=== PATIENT | female | born 1945 | race Caucasian/White ===

== ENCOUNTER 2018-12-05 13:41 | Observation (INO) | payer MEDICARE, OTHER ==
[~2018-12-05] VITALS: Ht 157.5 cm; Wt 60.3 kg
[2018-12-05] VITALS (277 sets, daily range): BP systolic 110–112; BP diastolic 62–73; PULSE 96–103; TEMP 98.2–98.5; O2SAT 67–100
[~2018-12-05 13:41] MED LIST: ADVAIR 100/28 DISKU1 IH; ADVAIR 100/28 DISKUS IH; ALDACTONE 25MG25 M1 PO; ALDACTONE 25MG25 MG PO; ALDACTONE25 MG PO; ASPIR-LOW81 MG PO; ASPIRIN 81M81 MG/TA2 PO; ASPIRIN E.C. 8181 MG PO; ATIVAN 0.50.5 MG/TAB PO; CALCIUM CITRATE1 TA1 PO; CARDIZEM CD 18180 MG PO; CEFTIN500 MG PO; CEPHALEXIN500 M1 PO; DIGOXIN0.125 MG PO; DILTIAZEM180 MG PO; FISH OIL CONC1000 MG PO; LAMICTAL 25MG T25 MG PO; LASIX 20MG TABL20 MG PO; LASIX20 MG PO; LEVOTHYROXIN0.075 MG PO; LEVOTHYROXINE PO; MAGNESIUM OXID400 MG PO; MUCINEX DM 30 M1 TE1 PO; MUCINEX1200 MG PO; NITROSTAT0.4 MG/TAB SL; PRINIVIL5 MG PO; REMERON 15M15 MG/TAB PO; REMERON30 MG PO; RT ADVAIR 128 DISKUS IH; RT SPIRIVA18 MCG IH; SINGULAIR 110 MG/TAB PO; SINGULAIR10 MG PO; SPIRIVA18 MCG IH; SYNTHROID0.075 MG/T PO; TESSALON P100 MG/CAP PO; THEO-DUR 2200 MG/TAB PO; THEO-DUR450 MG PO; TIROSINT75 MCG PO; TYLENOL 325MG325 MG PO; VENTOLIN0.09 MG IH; VITAMIN D32000 IU PO; ZYPREXA2.5 MG PO; evista PO; spiriva IH
[2018-12-05] MEDS ORDERED: RT ADVAIR 228 DISKUS IH (15:06)
[2018-12-05] MEDS ORDERED: PROAIR HFA0.09 MG/AC IH (15:06)
[2018-12-05] MEDS ORDERED: SYNTHROID0.1 MG/TAB PO (15:08)
[2018-12-05] MEDS ORDERED: DEMADEX 20MG20 M1 PO (15:08)
--- NOTE | 2018-12-05 16:48 | NUR ---
Dr. Mc spoke with Dr. Bales regarding consult.
[2018-12-05 17:01] LABS: MAGNESIUM 1.7 mg/dL (1.6-2.3)
--- NOTE | 2018-12-05 17:04 | NUR ---
Patient ambulated with standby assist to toilet.
[2018-12-05 17:15] LABS: TROPONIN-I 3 HR POST INITIAL < 0.012 ng/mL (0.000-0.034)
--- NOTE | 2018-12-05 17:53 | NUR ---
Filippo Peña here to reprogram patient ICD.
--- NOTE | 2018-12-05 18:18 | NUR ---
Lotion patients bilateral lower extremities.
--- NOTE | 2018-12-05 19:29 | NUR ---
Bedside report given to BETH Stiles.
--- NOTE | 2018-12-05 20:00 | NUR ---
Shift assessment complete at this time. Plan of care reviewed at bedside with patient. Additional time taken to address any other needs or concerns. Vitals stable at this time. Denies pain or any other discomfort. Will continue to monitor.
[2018-12-06] VITALS (360 sets, daily range): BP systolic 98–106; BP diastolic 62–72; PULSE 92–106; TEMP 98–98.6; O2SAT 72–100
--- NOTE | 2018-12-06 | NUR ---
Pt sleeping comfortably in bed. Denies pain or any other discomfort. Vitals stable at this time. Will continue to monitor.
--- NOTE | 2018-12-06 04:00 | NUR ---
Pt sleeping comfortably in bed. Denies pain or any other discomfort. Vitals stable at this time. Will continue to monitor.
--- NOTE | 2018-12-06 07:05 | NUR ---
Report received from BETH Stiles.
--- NOTE | 2018-12-06 07:09 | NUR ---
Bedside report given to BETH Roa.
--- NOTE | 2018-12-06 11:51 | NUR ---
Patient lives at home in [place], [place] alone and plans to return home upon discharge. Patient's family is supportive as needed especially her son (Filippo). Patient is mostly independent with her daily living activities but she does use a walker for mobility assistance and she does have home oxygen for her COPD. Patient's medical care physician's are Dr. Mike Drake, Dr. Bales, and Dr. Tiwari, her [facility] is [facility] and [facility], and she does not have advance directives completed at this time. Patient is a retired [employer] and there are no further needs at this time.
--- NOTE | 2018-12-06 14:04 | NUR ---
Discussed with Dr. Mc and RobertRN (house designer) my concern about patient going home alone.
[2018-12-06] MEDS ORDERED: LANOXIN 0.120.125 MG PO (14:10)
--- NOTE | 2018-12-06 14:15 | NUR ---
Discharge instructions given, questions invited and answered, assisted patient in getting dressed, INT removed tip intact. Waiting on patient's ride home.
--- NOTE | 2018-12-06 14:37 | NUR ---
BETH Jones (warehouse examiner) here to check on patient.
--- NOTE | 2018-12-06 14:40 | NUR ---
PT TRANSFERRED VIA WHEELCHAIR TO PATIENT ENTRANCE WHERE DAUGHTER IN LAW AWAITED WITH VEHICLE. PT'S BELONGINGS DISCHARGED WITH PATIENT. PT AMBULATED FROM WHEELCHAIR TO VEHICLE WITHOUT DIFFICULTY. PT TRANSFERRED WITH NC IN PLACE.
== END 2018-12-06 14:40 | disposition home or self-care (01) ==
LOC: IMCU 13:41 → ICU 14:56
PROVIDERS: ADMIT Hospitalist
DX: T82.118A Breakdown (mechanical) of other cardiac electronic device, initial encounter (principal); I13.0 Hypertensive heart and chronic kidney disease with heart failure and stage 1 through stage 4 chronic kidney disease, or unspecified chronic kidney disease; I50.9 Heart failure, unspecified; N18.3 Chronic kidney disease, stage 3 (moderate); J44.9 Chronic obstructive pulmonary disease, unspecified; Z99.81 Dependence on supplemental oxygen; E03.9 Hypothyroidism, unspecified; Z66 Do not resuscitate; I47.2 Ventricular tachycardia; R07.89 Other chest pain; Z79.899 Other long term (current) drug therapy; Z79.82 Long term (current) use of aspirin; Z87.891 Personal history of nicotine dependence; Z88.2 Allergy status to sulfonamides
CPT/HCPCS: J1644